=== PATIENT | female | born 1975 | race Hispanic/Latino ===

== ENCOUNTER 2020-05-26 09:28 | Emergency (ER) | payer MEDICARE ==
[2020-05-26 10:01] LABS: BASOPHILS % (AUTO) 0.3 % (0.0-5.0); HEMATOCRIT 44.1 % (36-48); LYMPHOCYTES % (AUTO) 10.2 % (21.0-51.0); MEAN CORPUSCULAR HEMOGLOBIN 29.9 pg (27.0-33.0); MEAN CORPUSCULAR HGB CONC 33.6 g/dL (32.0-36.0); MEAN CORPUSCULAR VOLUME 89.1 fL (79-99); MONOCYTES % (AUTO) 1.6 % (3.0-13.0); NEUTROPHILS % (AUTO) 86.6 % (40.0-77.0); PLATELET COUNT (AUTO) 300 K/uL (130-400); RED BLOOD CELL COUNT(AUTO) 4.95 MIL/uL (4.00-5.50); RED CELL DISTRIBUTION WIDTH 13.6 % (11.0-15.5); WHITE BLOOD COUNT (AUTO) 14.3 K/uL (4.8-10.8)
[2020-05-26 10:10] LABS: CREATININE 1.1 mg/dL (0.5-1.5); POTASSIUM 3.6 mmol/L (3.5-5.1)
[2020-05-26 10:15] LABS: ALBUMIN 3.6 g/dL (3.5-5.0); BILIRUBIN,TOTAL 0.3 mg/dL (0.2-1.0); TOTAL PROTEIN, SERUM 7.7 g/dL (6.0-8.3)
[2020-05-26] MEDS ORDERED: ONDANSETRON HCL 4 MG/2 ML VIAL ONE (10:45)
[2020-05-26] MEDS ORDERED: FAMOTIDINE/PF 20 MG/2 ML VIAL IV ONE (11:25)
[2020-05-26] MEDS ORDERED: KETOROLAC TROMETHAMINE 30MG/ML ONE (11:25)
[2020-05-26 11:39] LABS: APPEARANCE,URINE Cloudy (CLEAR); BILIRUBIN,URINE Small (NEGATIVE); COLOR,URINE Dark Yellow (YELLOW); GLUCOSE, URINE (UA) Negative (NEGATIVE); KETONES,URINE Negative (NEGATIVE); LEUKOCYTE ESTERASE ,URINE Small (NEGATIVE); NITRATE,URINE Negative (NEGATIVE); OCCULT BLOOD,URINE Trace (NEGATIVE); PROTEIN,URINE POS 1+ mg/dL (NEGATIVE)
[2020-05-26 11:47] LABS: HCG,QUAL RESULT NEGATIVE (NEGATIVE)
[2020-05-26] MEDS ORDERED: 0.9% SODIUM CHLORIDE 1000 ML IV BAG IV ONE (12:00)
[2020-05-26 12:13] LABS: BACTERIA,URINE Moderate /HPF (None Seen); CALCIUM OXALATE CRYSTALS,UR Few /LPF (None Seen); MUCUS,URINE Moderate LPF (None Seen); RBC,URINE 0-1 /HPF (0-1); WBC,URINE 26-50 /HPF (0-1)
[2020-05-26] MEDS ORDERED: MORPHINE SULFATE 4 MG/1ML SYG ONE (12:30)
[2020-05-26] MEDS ORDERED: CEFTRIAXONE SODIUM 1 GM ONE (13:19)
[2020-05-26] MEDS ORDERED: PANTOPRAZOLE 40 MG/VIAL ONE (13:19)
[2020-05-26] MEDS ORDERED: SODIUM CHLORIDE 0.9% 50 ML IV ONE (13:20)
== END 2020-05-26 15:23 | disposition home or self-care (01) ==
LOC: EDH 09:28
DX: N30.00 Acute cystitis without hematuria (principal); E86.0 Dehydration; R10.13 Epigastric pain; R11.10 Vomiting, unspecified; I10 Essential (primary) hypertension; Z90.49 Acquired absence of other specified parts of digestive tract; Z88.6 Allergy status to analgesic agent
CPT/HCPCS: 36415; 74176; 76705; 80053; 81001; 81025; 83605 ×2; 83690; 85025; 87088; 93005; 96361; 96374; 96375; 99285; C9113; J0696; J1885; J2270; J2405; J3490; J7030